=== PATIENT | female | born 2000 | race Caucasian/White ===

== ENCOUNTER 2022-03-31 14:09 | Emergency (ER) | payer OTHER ==
[~2022-03-31] VITALS: Ht 172.7 cm; Wt 59.1 kg
[2022-03-31 14:28] VITALS: TEMP 98.2
[2022-03-31] MEDS ORDERED: PREDNISONE20 MG PO (15:14)
[2022-03-31 16:44] VITALS: BP 123/81; PULSE 77
== END 2022-03-31 16:45 | disposition home or self-care (01) ==
LOC: COL.ER 14:09
DX: J30.89 Other allergic rhinitis (principal)
CPT/HCPCS: J7512

== ENCOUNTER 2022-07-13 06:34 | Emergency (ER) | payer OTHER ==
[~2022-07-13] VITALS: Ht 172.7 cm; Wt 56.8 kg
[~2022-07-13 06:34] MED LIST: PREDNISONE20 MG PO
[2022-07-13 06:48] VITALS: TEMP 97.7
[2022-07-13 07:08] LABS: COLLECTION METHOD CLEAN CATCH
[2022-07-13 07:29] LABS: MUCOUS Present (NOT PRESENT); SQUAMOUS EPITHELIAL 0-2 /hpf (0-10); URINE BACTERIA None Seen /hpf (NONE SEEN); URINE RBC >50 /hpf (0-2)
[2022-07-13 07:31] LABS: URINE APPEARANCE Turbid (CLEAR/HAZY); URINE COLOR Yellow (YELLOW); URINE GLUCOSE Negative (NEGATIVE); URINE KETONE Negative (NEGATIVE); URINE PROTEIN(semi-quant) 2+ (NEGATIVE); URINE UROBILINOGEN 0.2 E.U/dL (0.2-1.0)
[2022-07-13 07:32] LABS: URINE BLOOD 3+ (NEGATIVE); URINE NITRATE Negative (NEGATIVE)
[2022-07-13] MEDS ORDERED: BACTRIM DS 8001 TAB PO (07:35)
[2022-07-13 08:25] VITALS: BP 125/87; PULSE 80
== END 2022-07-13 08:25 | disposition home or self-care (01) ==
LOC: COL.ER 06:34
PROVIDERS: Emergency Medicine
DX: N39.0 Urinary tract infection, site not specified (principal); Z88.0 Allergy status to penicillin
CPT/HCPCS: J1580